=== PATIENT | male | born 1980 | race Caucasian/White ===

== ENCOUNTER → 2018-06-24 10:47 | Outpatient (CLI) | payer BC, SELFPAY | PROVIDERS: Visit Provider Physician Assistant | DX: N39.0 Urinary tract infection, site not specified (principal) | CPT/HCPCS: 87077; 87086; 87186 ==

== ENCOUNTER → 2021-04-17 08:31 | Outpatient (CLI) | payer BC, SELFPAY ==
[2021-04-17 09:01] LABS: COVID19 -Nasal RAPID POSITIVE (Negative)
== END ==
PROVIDERS: PCP Family Medicine; Visit Provider Nurse Practitioner Critical Care Medicine
DX: U07.1 COVID-19 (principal); Z20.822 Contact with and (suspected) exposure to COVID-19
CPT/HCPCS: 87635

== ENCOUNTER → 2021-11-05 10:30 | Outpatient (CLI) | payer BC, SELFPAY ==
[2021-11-05 12:00] LABS: COVID19 -Nasal RAPID Negative (Negative)
== END ==
PROVIDERS: PCP Family Medicine; Visit Provider Physician Assistant
DX: Z20.822 Contact with and (suspected) exposure to COVID-19 (principal)
CPT/HCPCS: 87635

== ENCOUNTER → 2022-06-23 08:02 | Outpatient (CLI) | payer BC, SELFPAY ==
[2022-06-23 08:31] LABS: Alanine Aminotransferase 36 IU/L (<50); Albumin 4.2 g/dL (3.5-5.0); Albumin Globulin Ratio 1.3 (1.0-2.8); Alkaline Phosphatase 62 U/L (38-126); Aspartate Aminotransferase 33 IU/L (17-59); BUN Creatinine Ratio 18.3 (6-22); Bilirubin Total 0.5 mg/dL (0.2-1.3); Blood Urea Nitrogen 21 mg/dL (9-20); Calcium 8.9 mg/dL (8.4-10.2); Carbon Dioxide 28 mmol/L (22-32); Chloride 104 mmol/L (98-107); Cholesterol 229 mg/dL (140-199); Estimated Glomerular Filt Rate > 60 mL/min (>60); Globulin 3.3 g/dL (1.7-4.1); Glucose 94 mg/dL (70-100); HDL Cholesterol 30 mg/dL (40-60); HEMOLYSIS 23 (0-50); LDL Cholesterol Calculated 142 mg/dL (<100); Potassium 4.3 mmol/L (3.4-5.1); Sodium 138 mmol/L (137-145); Total Protein 7.5 g/dL (6.3-8.2); Triglycerides 286 mg/dL (35-150)
[2022-06-23 08:40] LABS: Add Manual Diff / Slide Review NO; Basophils Absolute Auto 0 /uL (0-100); Basophils Percent Auto 0.8 % (0-2); Eosinophils Absolute Auto 400 /uL (0-450); Eosinophils Percent Auto 7.4 % (2-4); Hematocrit 44.1 % (41-53); Hemoglobin 14.8 g/dL (13.5-17.5); Lymphocytes Absolute Auto 1300 /uL (1100-4500); Lymphocytes Percent Auto 21.1 % (25-40); Mean Corpuscular HGB Conc 33.6 % (30-36); Mean Corpuscular Hemoglobin 27.2 PG (26-34); Mean Corpuscular Volume 81.2 fL (80-100); Monocytes Absolute Auto 700 /uL (0-900); Monocytes Percent Auto 11.8 % (3-14); Neutrophils Absolute Auto 3600 /uL (1500-7000); Neutrophils Percent Auto 58.9 % (50-75); Platelet Count 188 X10^3/uL (150-400); Red Blood Cell Count 5.43 X10^6/uL (4.5-5.9); Red Cell Distribution Width 14.2 % (11.6-14.8); White Blood Cell Count 6.1 X10^3/uL (4.5-11.0)
[2022-06-23 09:52] LABS: TSH w/ Reflex to FT4 1.14 uIU/mL (0.47-4.68)
== END ==
PROVIDERS: PCP Family Medicine; Referring Provider Family Medicine; Visit Provider Family Medicine
DX: E78.2 Mixed hyperlipidemia (principal); L30.9 Dermatitis, unspecified; Z13.0 Encounter for screening for diseases of the blood and blood-forming organs and certain disorders involving the immune mechanism; Z13.29 Encounter for screening for other suspected endocrine disorder; Z79.899 Other long term (current) drug therapy
CPT/HCPCS: 36415; 80053; 80061; 84443; 85025

== ENCOUNTER 2023-05-12 07:54 | Emergency (ER) | payer BC, SELFPAY ==
[2023-05-12] VITALS (8 sets, daily range): BP systolic 123–166; BP diastolic 81–96; PULSE 48–58; RESP 7–16; TEMP 36.9; O2SAT 96–100; BMI 31.3
[2023-05-12] MEDS: ONDANSETRON 4 MG ODT SL (08:04)
[2023-05-12] MEDS: MECLIZINE HCL 12.5 MG TABLET 25 MG PO (08:05)
--- NOTE | 2023-05-12 08:09 | ED_ITS ---
HPI - General Adult General Chief complaint: Dizziness Stated complaint: vertigo Time Seen by Provider: 05/12/23 07:54 Source: patient Mode of arrival: Ambulatory Limitations: no limitations History of Present Illness HPI narrative: Patient is a 42-year-old otherwise healthy male with a history of eczema who is here for evaluation of vertigo. He states he woke up this morning at approximately 0600 hours with a room spinning sensation. He states there was a period of time when it went away but then he was at work in the symptoms returned. No sinus congestion, no tinnitus, no vision changes, no sore throat, no chest pain, shortness of breath, palpitations. He states that it does seem to be positional as there are periods of time when he is relatively asymptomatic but then it comes on and he becomes very nauseous. He does describe it as a room spinning sensation but also a lightheadedness. Has not tried anything for the symptoms. No headache. No trauma. Related Data Home Medications Medication Instructions Recorded Confirmed clobetasol 0.05 % shampoo topical 02/11/23 05/03/23 Previous Rx's Medication Instructions Recorded cyclobenzaprine 10 mg tablet 10 mg PO TID PRN muscle spasm #14 08/24/21 tabs tacrolimus 0.1 % topical ointment 1 applic topical BID #100 grams 03/27/23 mometasone 0.1 % topical cream See Rx Instructions .Route 05/03/23 .COMPLEX #45 grams triamcinolone acetonide 0.1 % 1 applic topical BID #453.6 grams 05/03/23 topical cream meclizine 25 mg tablet 25 mg PO BID PRN dizziness #14 tabs 05/12/23 Allergies Allergy/AdvReac Type Severity Reaction Status Date / Time No Known Allergies Allergy Uncoded 05/03/23 08:16 Review of Systems Constitutional Constitutional: Reports system reviewed and no additional complaints, except as documented Eyes Eyes: Reports system reviewed and no additional complaints, except as documented ENT Ears, Nose, Mouth, and Throat: Reports system reviewed and no additional complaints, except as documented Cardiovascular Cardiovascular: Reports system reviewed and no additional complaints, except as documented Respiratory Respiratory: Reports system reviewed and no additional complaints, except as documented Genitourinary Genitourinary: Reports system reviewed and no additional complaints, except as documented Neurologic Neurologic: Reports system reviewed and no additional complaints, except as documented Patient History Medical History Hyperlipidemia Eczema (~1988) Surgical History Anesthesia Broken arm (~1989) Family History Father Liver cancer Diabetes mellitus Grandfather History of heart disease Social History marital status: number of children: 3 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[employer], 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) Smoking Status: Never smoker alcohol intake: current (rare) substance use type: does not use Smoking Status: Never smoker Exam Initial Vital Signs Initial Vital Signs: Vital Signs Pulse Rate 53 L 05/12/23 08:02 Const General: cooperative, comfortable and No ill appearing HENMT Head: normal to inspection and normocephalic Nose: external nose normal Mouth: other (Dry mucous membranes) Resp Effort & Inspection: normal respiratory effort Auscultation: clear to auscultation bilaterally Cardio Rate: regular rate Rhythm: regular rhythm Neuro General: patient alert, patient awake, patient oriented x3 and moves all extremities Cognition: normal cognition Speech: speech normal Sensory Exam: no sensory deficits noted Other: Positive Taya-Hallpike to the left. Extrem General: normal to inspection and capillary refill normal Course Orders Ordered: ED Orders 05/12/23 08:00 EKG-12 Lead Stat 05/12/23 08:30 Complete Blood Count AUTO DIFF Stat Comprehensive Metabolic Panel Stat Lipase Stat 05/12/23 09:02 CT head/brain wo con Stat Discontinued Medications Diazepam (Diazepam 2 Mg Tablet) 2 mg PO NOW ONE Stop: 05/12/23 09:03 Last Admin: 05/12/23 09:21 Dose: 2 mg Documented By: CTS Sodium Chloride (Normal Saline 0.9%) 1,000 mls @ 1,000 mls/hr IV BOLUS ONE Stop: 05/12/23 09:09 Last Infusion: 05/12/23 09:22 Dose: Infused Documented By: Admin: 05/12/23 08:29 Dose: 1,000 mls/hr Documented By: JEANMARIE Meclizine HCl (Meclizine Hcl 12.5 Mg Tablet) 25 mg PO NOW ONE Stop: 05/12/23 08:01 Last Admin: 05/12/23 08:05 Dose: 25 mg Documented By: LUIS Ondansetron HCl (Ondansetron 4 Mg Odt) 4 mg SL NOW ONE Stop: 05/12/23 08:01 Last Admin: 05/12/23 08:04 Dose: 4 mg Documented By: LUIS Vital Signs Vital signs: Vital Signs - 8 hr 05/12/23 08:02 05/12/23 08:05 05/12/23 08:05 Temperature Pulse Rate 53 L 49 L Respiratory Rate 12 Blood Pressure 166/96 H Pulse Oximetry 100 Oxygen Delivery Method 05/12/23 08:06 05/12/23 08:30 05/12/23 08:30 Temperature 98.4 F Pulse Rate 58 L 48 L Respiratory Rate 16 12 Blood Pressure 166/96 H 139/83 Pulse Oximetry 100 98 Oxygen Delivery Method Room Air Medical Decision Making Lab Data Lab results reviewed: Yes I reviewed the patient's lab results. 05/12/23 08:30 05/12/23 08:30 Labs: Lab Results 05/12/23 Range/Units 08:30 WBC 6.0 (4.5-11.0) X10^3/uL RBC 4.98 (4.5-5.9) X10^6/uL Hgb 13.8 (13.5-17.5) g/dL Hct 40.0 L (41-53) % MCV 80.3 (80-100) fL MCH 27.7 (26-34) PG MCHC 34.5 (30-36) % RDW 13.6 (11.6-14.8) % Plt Count 241 (150-400) X10^3/uL Neut % (Auto) 60.5 (50-75) % Lymph % (Auto) 20.7 L (25-40) % Canadian % (Auto) 11.7 (3-14) % Eos % (Auto) 6.0 H (2-4) % Baso % (Auto) 1.1 (0-2) % Neut # (Auto) 3600 (5533-0012) /uL Lymph # (Auto) 1200 (3510-8159) /uL Canadian # (Auto) 700 (0-900) /uL Eos # (Auto) 400 (0-450) /uL Baso # (Auto) 100 (0-100) /uL Sodium 140 (137-145) mmol/L Potassium 4.0 (3.4-5.1) mmol/L Chloride 107 (98-107) mmol/L Carbon Dioxide 26 (22-32) mmol/L BUN 17 (9-20) mg/dL Creatinine 1.10 (0.66-1.25) mg/dL Estimated GFR > 60 (>60) mL/min BUN/Creatinine Ratio 15.5 (6-22) Glucose 121 H (70-100) mg/dL Calcium 9.9 (8.4-10.2) mg/dL Total Bilirubin 0.5 (0.2-1.3) mg/dL AST 26 (17-59) IU/L ALT 23 (<50) IU/L Alkaline Phosphatase 45 (38-126) U/L Total Protein 7.4 (6.3-8.2) g/dL Albumin 4.2 (3.5-5.0) g/dL Globulin 3.2 (1.7-4.1) g/dL Albumin/Globulin Ratio 1.3 (1.0-2.8) Lipase 68 (23-300) U/L Imaging Data CT scan - head: Radiologist's Impression: PROCEDURE: CT HEAD/BRAIN WO CON INDICATIONS: vertigo TECHNIQUE: Noncontrast 4.5 mm thick angled axial sections acquired from the foramen magnum to the vertex, with coronal and sagittal reformats. For radiation dose reduction, the following was used: automated exposure control, adjustment of mA and/or kV according to patient size. COMPARISON: None. FINDINGS: Image quality: Diagnostic. CSF spaces: Basal cisterns are patent. No extra-axial fluid collections. Ventricles are normal in size and shape. Brain: No midline shift. No intracranial masses or hemorrhage. Latham-white matter interface is normal. Skull and face: Calvarium and visualized facial bones are intact, without suspicious lesions. Sinuses: Visualized sinuses and mastoids are clear. IMPRESSION: No acute intracranial pathology ECG Data Attestation: I personally reviewed and interpreted this ECG as follows: Interpretation: Sinus bradycardia Ventricular rate of 50 Normal axis Normal QRS Normal QTC ST T Discharge Plan Departure Patient Disposition: Home Clinical Impression: Vertigo Instructions: DI for Vertigo Activity Restrictions/Additional Instructions: The meclizine is for use as needed. I recommend that you look up a physical therapy maneuver called the Angelica maneuver. This is something that can be helpful with improvement of your symptoms. Contact your primary doctor for a follow-up. Return to the emergency department for new symptoms. Prescriptions: New meclizine 25 mg tablet 25 mg PO BID PRN (Reason: dizziness) Qty: 14 0RF No Action triamcinolone acetonide 0.1 % cream 1 applic topical BID Qty: 453.6 1RF mometasone 0.1 % cream See Rx Instructions .ROUTE .COMPLEX Qty: 45 1RF Dose Instruction: APPLY TOPICALLY TO THE AFFECTED AREA TWICE DAILY SPARINGLY NEEDED. DO NOT USE LONGER THAN 2 WEEKS IN 1 AREA Rx Instructions: APPLY TOPICALLY TO THE AFFECTED AREA TWICE DAILY SPARINGLY NEEDED. DO NOT USE LONGER THAN 2 WEEKS IN 1 AREA cyclobenzaprine 10 mg tablet 10 mg PO TID PRN (Reason: muscle spasm) Qty: 14 0RF clobetasol 0.05 % shampoo topical tacrolimus 0.1 % ointment 1 applic topical BID Qty: 100 0RF Referrals: Stephanie Mosquera MD [Primary Care Provider] - Stand Alone Forms: Patient Portal/API, Work Release Note
[2023-05-12] MEDS: SODIUM CHLORIDE 0.9% 1,000 ML 1000 ML IV (08:29)
[2023-05-12 08:51] LABS: Alanine Aminotransferase 23 IU/L (<50); Albumin 4.2 g/dL (3.5-5.0); Albumin Globulin Ratio 1.3 (1.0-2.8); Alkaline Phosphatase 45 U/L (38-126); Aspartate Aminotransferase 26 IU/L (17-59); BUN Creatinine Ratio 15.5 (6-22); Bilirubin Total 0.5 mg/dL (0.2-1.3); Blood Urea Nitrogen 17 mg/dL (9-20); Calcium 9.9 mg/dL (8.4-10.2); Carbon Dioxide 26 mmol/L (22-32); Chloride 107 mmol/L (98-107); Estimated Glomerular Filt Rate > 60 mL/min (>60); Globulin 3.2 g/dL (1.7-4.1); Glucose 121 mg/dL (70-100); HEMOLYSIS < 15 (0-50); Lipase 68 U/L (23-300); Sodium 140 mmol/L (137-145); Total Protein 7.4 g/dL (6.3-8.2)
[2023-05-12 08:53] LABS: Add Manual Diff / Slide Review NO; Basophils Absolute Auto 100 /uL (0-100); Basophils Percent Auto 1.1 % (0-2); Eosinophils Absolute Auto 400 /uL (0-450); Hemoglobin 13.8 g/dL (13.5-17.5); Lymphocytes Absolute Auto 1200 /uL (1100-4500); Lymphocytes Percent Auto 20.7 % (25-40); Mean Corpuscular HGB Conc 34.5 % (30-36); Mean Corpuscular Hemoglobin 27.7 PG (26-34); Mean Corpuscular Volume 80.3 fL (80-100); Monocytes Absolute Auto 700 /uL (0-900); Monocytes Percent Auto 11.7 % (3-14); Neutrophils Absolute Auto 3600 /uL (1500-7000); Neutrophils Percent Auto 60.5 % (50-75); Platelet Count 241 X10^3/uL (150-400); Red Blood Cell Count 4.98 X10^6/uL (4.5-5.9); Red Cell Distribution Width 13.6 % (11.6-14.8)
--- NOTE | 2023-05-12 09:02 | DI.CT.S_ITS ---
PROCEDURE: CT HEAD/BRAIN WO CON INDICATIONS: vertigo TECHNIQUE: Noncontrast 4.5 mm thick angled axial sections acquired from the foramen magnum to the vertex, with coronal and sagittal reformats. For radiation dose reduction, the following was used: automated exposure control, adjustment of mA and/or kV according to patient size. COMPARISON: None. FINDINGS: Image quality: Diagnostic. CSF spaces: Basal cisterns are patent. No extra-axial fluid collections. Ventricles are normal in size and shape. Brain: No midline shift. No intracranial masses or hemorrhage. Latham-white matter interface is normal. Skull and face: Calvarium and visualized facial bones are intact, without suspicious lesions. Sinuses: Visualized sinuses and mastoids are clear. IMPRESSION: No acute intracranial pathology. Dictated by: She Churchill M.D. on 05/12/2023 at 9:21 Approved by: She Churchill M.D. on 05/12/2023 at 9:24
[2023-05-12] MEDS: diazePAM 2 MG TABLET PO (09:21)
== END 2023-05-12 10:14 | disposition home or self-care (01) ==
PROVIDERS: Emergency Provider Emergency Medicine; PCP Student in an Organized Health Care Education/Training Program
DX: R42 Dizziness and giddiness (principal); R00.1 Bradycardia, unspecified
CPT/HCPCS: 36415; 70450; 80053; 83690; 85025; 93005; 96360; 99284

== ENCOUNTER 2023-06-10 12:59 | Day surgery (SDC) | payer BC, SELFPAY ==
--- NOTE | 2023-06-10 | PATH_ITS ---
[facility] Accession Number: [id number] No. of containers..01 Tissue . 01 Material submitted: . rectum - RECTAL POLYP, BIOPSY . 01 Diagnosis: RECTAL POLYP, BIOPSY: Tubular adenoma. . HEF 06/15/2023 1150 Local . 01 Electronically signed: . Radha Rodriguez MD, Pathologist NPI- [id number] . 01 Gross description: . RECTAL POLYP: Received in formalin is 1 fragment(s) of briggs, soft tissue measuring 0.2 x 0.2 x 0.1 cm submitted entirely in 1 cassette(s) /MANDI 06/15/2023 1150 Local . 01 Pathologist provided ICD-10: D12.8 . 01 CPT . 790785 Specimen Comment: A courtesy copy of this report has been sent to [phone] Performed at: [address] [facility] [address] [place] [address], [place], [place] [id number] MD Jaquan Griffin MD Phone: [phone]
[2023-06-10 13:23] VITALS: BP 139/85; PULSE 51; RESP 16; TEMP 36.6; O2SAT 100
[2023-06-10] MEDS: LACTATED RINGERS 1,000 ML 42 ML IV (13:39)
--- NOTE | 2023-06-10 14:08 | PM.HP.1 ---
History of Present Illness History of Present Illness Date Patient Seen: 06/10/23 Time Patient Seen: 14:08 Chief complaint: SD Narrative: 42-year-old man here for screening colonoscopy. His father developed colon cancer and passed at the age of 65. No abdominal concerns today. This is his 1st colonoscopy. [facility] Medical History Hyperlipidemia Eczema (~1988) Surgical History Anesthesia Broken arm (~1989) Family History Father Liver cancer Diabetes mellitus Grandfather History of heart disease Social History marital status: number of children: 3 occupational status: employed Smoking Status: Never smoker alcohol intake: never substance use type: does not use Meds Home Medications and Allergies Home Medications Medication Instructions Recorded Confirmed Type clobetasol 0.05 % shampoo topical 02/11/23 05/19/23 History tacrolimus 0.1 % topical ointment 1 applic topical BID #100 grams 03/27/23 06/10/23 Rx mometasone 0.1 % topical cream See Rx Instructions .Route 05/03/23 06/10/23 Rx .COMPLEX #45 grams triamcinolone acetonide 0.1 % 1 applic topical BID #453.6 grams 05/03/23 06/10/23 Rx topical cream Allergies Allergy/AdvReac Type Severity Reaction Status Date / Time No Known Drug Allergies Allergy Verified 06/10/23 13:43 Exam Vital Signs (past 8 hours): - 06/10/23 13:23 Temperature 98 F Pulse Rate 51 L Respiratory Rate 16 Blood Pressure 139/85 Pulse Oximetry 100 Oxygen Delivery Method Room Air Oxygen Delivery Method Room Air Narrative Exam Narrative: General adult man alert oriented no acute distress Chest nonlabored respiration Extremities warm well perfused Assessment & Plan Assessment & Plan narrative: The patient requires colorectal screening and colonoscopy is recommended. Technical details were discussed. Risks, benefits, alternatives explained. Risks including but not limited to myocardial infarction, aspiration, bleeding, pain, missed lesion, incomplete examination, need for further radiographic studies, colonic perforation, and need for major abdominal surgery were discussed. All questions were answered to their satisfaction, and they are in agreement with this plan.
--- NOTE | 2023-06-10 14:14 | P.OP.COLON_ITS ---
Operative Date/Time/Diagnoses Date of procedure: 06/10/23 Time of procedure: 14:14 Pre-op diagnosis: Family history of colon cancer Procedure & Clinicians Study performed: Colonoscopy Same procedure as scheduled: Yes Indications: Colorectal screening Family history of colon cancer Surgeon: Jon Sommer Procedure Notes Procedure in detail: The history and physical was performed/updated and the patient is ASA class is 2. The procedure was discussed in detail with the patient. Potential risks complications including infection, bleeding, missed diagnosis, perforation, need for surgery, and were explained. Their questions were answered and informed consent was obtained. Patient was brought to the procedure room and placed standard monitoring equipment. The patient's vital signs were monitored continuously throughout the entire procedure. Prior to starting time-out was performed. The patient was placed in the left lateral recumbent position. Procedural sedation was administered by anesthesia. Examination began with a thorough inspection of the perianal area there was no evidence of fissures, fistulae, external hemorrhoids or cutaneous malignancy. The colonoscopy scope was then placed into the anal canal and was advanced to the cecum, which was identified by the ileocecal valve, the appendiceal orifice and the confluence of the taenia. The scope was then slowly withdrawn examining colon thoroughly in all directions, irrigating it of any residual stool. The scope was retroflexed within the rectum The patient tolerated the procedure well. They will be discharged once criteria are met. The prep was of good/excellent quality. The withdrawl time was 6 minutes. FINDINGS * Rectal polyp 10 cm from verge 5 mm in size removed with cold snare. Specimen(s): other (Rectal polyp) Post-procedure Recommendations: Colonoscopy in 5 years Disposition: same day surgery
[2023-06-10 14:48] VITALS: BP 106/71; PULSE 72; RESP 16; TEMP 36.2; O2SAT 98
[2023-06-10 14:55] VITALS: BP 106/66; PULSE 54; RESP 16; O2SAT 98
[2023-06-10] MEDS: diphenhydrAMINE 50 MG/ML VIAL 25 MG IV (14:59)
[2023-06-10 15:00] VITALS: BP 117/77; PULSE 54; RESP 16; TEMP 36.2; O2SAT 98
[2023-06-10 15:05] VITALS: BP 109/74; BP 120/70; PULSE 56; PULSE 58; RESP 14; RESP 16; O2SAT 98
== END 2023-06-10 15:05 | disposition home or self-care (01) ==
PROVIDERS: PCP Student in an Organized Health Care Education/Training Program; Referring Provider Surgery; Visit Provider Surgery
PROC: 0DJD8ZZ Inspection of Lower Intestinal Tract, Via Natural or Artificial Opening Endoscopic (ICD-10-PCS; CPT 45378; principal; 2023-06-10 14:00)
DX: Z12.11 Encounter for screening for malignant neoplasm of colon (principal); Z80.0 Family history of malignant neoplasm of digestive organs; D12.8 Benign neoplasm of rectum
CPT/HCPCS: 45385; J1200

== ENCOUNTER → 2024-04-17 06:44 | Outpatient (CLI) | payer BC, SELFPAY ==
[2024-04-17 07:37] LABS: Add Manual Diff / Slide Review NO; Basophils Absolute Auto 100 /uL (0-100); Basophils Percent Auto 1.3 % (0-2); Eosinophils Absolute Auto 300 /uL (0-450); Eosinophils Percent Auto 4.5 % (2-4); Hematocrit 43.3 % (41-53); Hemoglobin 15.1 g/dL (13.5-17.5); Lymphocytes Absolute Auto 1500 /uL (1100-4500); Lymphocytes Percent Auto 24.2 % (25-40); Mean Corpuscular HGB Conc 34.8 % (30-36); Mean Corpuscular Hemoglobin 27.9 PG (26-34); Mean Corpuscular Volume 80.1 fL (80-100); Monocytes Absolute Auto 700 /uL (0-900); Monocytes Percent Auto 11.6 % (3-14); Neutrophils Absolute Auto 3700 /uL (1500-7000); Neutrophils Percent Auto 58.4 % (50-75); Platelet Count 267 X10^3/uL (150-400); Red Blood Cell Count 5.41 X10^6/uL (4.5-5.9); Red Cell Distribution Width 13.5 % (11.6-14.8); White Blood Cell Count 6.4 X10^3/uL (4.5-11.0)
[2024-04-17 08:15] LABS: Alanine Aminotransferase 52 IU/L (<50); Albumin 4.6 g/dL (3.5-5.0); Albumin Globulin Ratio 1.6 (1.0-2.8); Alkaline Phosphatase 57 U/L (38-126); Aspartate Aminotransferase 40 IU/L (17-59); Bilirubin Total 0.8 mg/dL (0.2-1.3); Blood Urea Nitrogen 20 mg/dL (9-20); Calcium 9.9 mg/dL (8.4-10.2); Carbon Dioxide 30 mmol/L (22-32); Chloride 103 mmol/L (98-107); Cholesterol 274 mg/dL (140-199); Estimated Glomerular Filt Rate > 60 mL/min (>60); Globulin 2.8 g/dL (1.7-4.1); Glucose 100 mg/dL (70-100); HDL Cholesterol 37 mg/dL (40-60); HEMOLYSIS < 15 (0-50); LDL Cholesterol Calculated 191 mg/dL (<100); Potassium 4.6 mmol/L (3.4-5.1); Sodium 139 mmol/L (137-145); Total Protein 7.4 g/dL (6.3-8.2); Triglycerides 230 mg/dL (35-150)
== END ==
PROVIDERS: PCP Student in an Organized Health Care Education/Training Program; Referring Provider Dermatology; Visit Provider Dermatology
DX: L20.89 Other atopic dermatitis (principal); L29.89 Other pruritus
CPT/HCPCS: 36415; 80053; 80061; 85025